=== PATIENT | male | born 1940 | race Caucasian/White ===

== ENCOUNTER 2018-05-15 06:28 | Inpatient (IN) | payer OTHER ==
[~2018-05-15 06:28] MED LIST: BUPIVACAINE 0.5% (SDV) 30 ML, morphine SULFATE (PF) 8 MG, EPINEPHrine 0.3 MG, KETOROLAC... IRR; CEFAZOLIN 2 GM/50 ML (PMX) 50 ML IVPB; DEXAMETHASONE 1 MG TAB PO; GABAPENTIN 300 MG CAP PO; TRANEXAMIC ACID 1GM/100ML(PMX) 100 ML IVPB
[2018-05-15] MEDS: DEXAMETHASONE 1 MG TAB PO (07:15)
[2018-05-15] MEDS: GABAPENTIN 300 MG CAP PO ×2 (07:15→22:54)
[2018-05-15] MEDS: LACTATED RINGER'S 1,000 ML IV* (07:16)
[2018-05-15] MEDS ORDERED: ROCURONIUM 50 MG INJ (07:55)
[2018-05-15] MEDS ORDERED: PROPOFOL 20 ML (07:55)
[2018-05-15] MEDS ORDERED: ROPIVACAINE 0.5 % 30 ML VIAL (07:55)
[2018-05-15] MEDS ORDERED: MIDAZOLAM 1 MG/ML 2 ML INJ (07:55)
[2018-05-15] MEDS ORDERED: FENTAnyl 50 MCG/ML VIAL (07:55)
[2018-05-15] MEDS ORDERED: BUPIVACAINE 0.5% (SDV) 30 ML, morphine SULFATE (PF) 8 MG, EPINEPHrine 0.3 MG, KETOROLAC... IRR (09:00)
[2018-05-15] MEDS ORDERED: TRANEXAMIC ACID 1GM/100ML(PMX) 100 ML (09:05)
[2018-05-15] MEDS: CEFAZOLIN 2 GM/50 ML (PMX) 50 ML IVPB (09:08)
[2018-05-15] MEDS ORDERED: THROMBIN (BOVINE) 5,000 UNIT VIAL TP (09:29)
[2018-05-15] MEDS: POLYMYXIN/BACITRACIN 1L IRRIG (09:29)
[2018-05-15] MEDS ORDERED: CA CHLORIDE (GM) 10% 10 ML INJ (09:29)
[2018-05-15] MEDS: TRANEXAMIC ACID 1GM/100ML(PMX) 100 ML IVPB ×2 (09:30→11:48)
[2018-05-15] MEDS ORDERED: ONDANSETRON 4 MG INJ (09:33)
[2018-05-15] MEDS ORDERED: DEXAMETHASONE 4 MG/ML 5 ML INJ (09:33)
[2018-05-15] MEDS ORDERED: METOCLOPRAMIDE 10 MG INJ (09:33)
[2018-05-15] MEDS ORDERED: PHENYLephrine (100 MCG/ML) 10ML SYG (10:10)
[2018-05-15] MEDS ORDERED: hydrALAzine 20 MG INJ IV (10:30)
[2018-05-15] MEDS ORDERED: METOCLOPRAMIDE 10 MG INJ IV (10:30)
[2018-05-15] MEDS ORDERED: DIPHENHYDRAMINE 50 MG INJ IV ×2 (10:30→11:00)
[2018-05-15] MEDS ORDERED: LABETALOL HCL 20MG INJ IV (10:30)
[2018-05-15] MEDS ORDERED: ALBUMIN HUMAN 5% 250 ML IV (10:30)
[2018-05-15] MEDS ORDERED: FENTAnyl 50 MCG/ML VIAL IV ×3 (10:30)
[2018-05-15] MEDS ORDERED: MEPERIDINE 25 MG INJ IV (10:30)
[2018-05-15] MEDS ORDERED: HYDROmorphONE 1 MG/5 ML IV SYRINGE IV ×3 (10:30)
[2018-05-15] MEDS ORDERED: EPHEDrine SULFATE 50 MG/5 ML SYG IV (10:30)
[2018-05-15] MEDS ORDERED: OXYCODONE/ACETAMINOPHEN (5/325) TAB PO ×2 (10:30)
[2018-05-15] MEDS ORDERED: ONDANSETRON 4 MG INJ IV ×2 (10:30→11:00)
[2018-05-15] MEDS ORDERED: SUGAMMADEX SODIUM 200 MG/2 ML VIAL IV (10:44)
[2018-05-15] MEDS ORDERED: KETOROLAC 15 MG INJ IV (11:00)
[2018-05-15] MEDS ORDERED: NACL 0.9% 3 ML SYG IV (11:00)
[2018-05-15] MEDS ORDERED: oxyCODONE 5 MG TAB PO ×2 (11:00)
[2018-05-15] MEDS ORDERED: MAGNESIUM HYDROXIDE 30ML CUP PO (11:00)
[2018-05-15] MEDS ORDERED: LOPERAMIDE 2 MG CAP PO (11:00)
[2018-05-15] MEDS ORDERED: HYDROmorphONE 1 MG/ML SYG IV (11:00)
[2018-05-15] MEDS ORDERED: CEFAZOLIN 1 GM/50 ML (PMX) 0 ML IVPB (11:32)
[2018-05-15] MEDS: DEXAMETHASONE 2 MG TAB PO ×2 (14:03→18:21)
[2018-05-15] MEDS: CEFAZOLIN 1 GM/50 ML (PMX) 50 ML IVPB ×2 (14:03→22:53)
[2018-05-15] MEDS: ACETAMINOPHEN 500 MG TAB PO ×2 (14:07→18:22)
[2018-05-15] MEDS: RIVAROXABAN 20 MG TABLET PO (18:22)
[2018-05-15] MEDS: SENNA/DOCUSATE NA (8.6MG/50MG) TAB PO (22:54)
[2018-05-15] MEDS: ZOLPIDEM 5 MG TAB PO (22:54)
[2018-05-15] MEDS: EZETIMIBE 10 MG TAB PO (22:57)
[2018-05-15] MEDS: ATORVASTATIN 40 MG TAB PO (22:57)
[2018-05-16] MEDS: DEXAMETHASONE 2 MG TAB PO ×2 (00:34→05:59)
[2018-05-16] MEDS: ACETAMINOPHEN 500 MG TAB PO ×2 (05:59)
[2018-05-16] MEDS: CEFAZOLIN 1 GM/50 ML (PMX) 50 ML IVPB (05:59)
[2018-05-16] MEDS ORDERED: NON-FORMULARY/PATIENT OWN MED (Ezetimibe/Simvastatin (Vytorin 10-40 mg Tablet) 1 EACH) PO (09:00)
[2018-05-16] MEDS: SENNA/DOCUSATE NA (8.6MG/50MG) TAB PO (09:05)
[2018-05-16] MEDS: LISINOPRIL 10 MG TAB PO (09:05)
[2018-05-16] MEDS: FLECAINIDE 50 MG TAB PO (09:06)
[2018-05-16] MEDS: ATENOLOL 50 MG TAB PO (09:10)
[2018-05-16] MEDS: oxyCODONE 5 MG TAB PO (09:37)
== END 2018-05-16 11:14 | disposition home or self-care (01) | DRG 483 ==
LOC: REC 06:28 → MS1 11:42
PROC: 0RRJ0JZ Replacement of Right Shoulder Joint with Synthetic Substitute, Open Approach (ICD-10-PCS; principal; 2018-05-15 09:07)
PROC: 0LS30ZZ Reposition Right Upper Arm Tendon, Open Approach (ICD-10-PCS; 2018-05-15 09:07)
PROC: 0PB90ZZ Excision of Right Clavicle, Open Approach (ICD-10-PCS; 2018-05-15 09:07)
DX: M19.111 Post-traumatic osteoarthritis, right shoulder (principal); Z79.02 Long term (current) use of antithrombotics/antiplatelets; G47.33 Obstructive sleep apnea (adult) (pediatric); I10 Essential (primary) hypertension; S46.211A Strain of muscle, fascia and tendon of other parts of biceps, right arm, initial encounter; E78.5 Hyperlipidemia, unspecified
CPT/HCPCS: 73030-RT; 86999; 88304; 88311; 97161